=== PATIENT | female | born 1965 | race African-American/Black ===

== ENCOUNTER 2019-07-07 06:56 | Emergency (ER) | payer MEDICAID, OTHER ==
[~2019-07-07] VITALS: Ht 170.2 cm; Wt 86.0 kg
[2019-07-07] MEDS ORDERED: IBUPROFEN 800MG TABLET PO ONE (12:00)
[2019-07-07 12:22] VITALS: BP 157/80
== END 2019-07-07 12:25 | disposition home or self-care (01) ==
LOC: ER 06:56
DX: R07.89 Other chest pain (principal); J06.9 Acute upper respiratory infection, unspecified; Z98.890 Other specified postprocedural states
CPT/HCPCS: 71045; 93005; 99283; 99284

== ENCOUNTER 2022-10-31 09:55 | Emergency (ER) | payer BC, MEDICAID, OTHER ==
[~2022-10-31] VITALS: Ht 170.2 cm; Wt 86.9 kg
[2022-10-31] MEDS: LIDOCAINE 5% PATCH TOP SCH ×3 (11:30→13:16)
[2022-10-31] MEDS ORDERED: KETOROLAC 60MG/2ML VIAL IM ONE (11:30)
[2022-10-31] MEDS ORDERED: METHOCARBAMOL 500MG TABLET PO ONE (13:00)
[2022-10-31] MEDS ORDERED: METH-653 MT (13:15)
[2022-10-31] MEDS ORDERED: LIDO1ADH71 TP (13:15)
[2022-10-31 13:16] VITALS: BP 167/78
== END 2022-10-31 13:23 | disposition home or self-care (01) ==
LOC: ER 09:55
DX: M54.32 Sciatica, left side (principal); Z98.890 Other specified postprocedural states; M79.10 Myalgia, unspecified site
CPT/HCPCS: 96372; 99283; J1885; Z7610

== ENCOUNTER 2025-02-28 03:57 | Emergency (ER) | payer OTHER ==
[~2025-02-28] VITALS: Ht 167.6 cm; Wt 84.2 kg
[~2025-02-28 03:57] MED LIST: LIDO1ADH71 TP; METH-653 MT
[2025-02-28 04:07] VITALS: O2SAT 96
[2025-02-28] MEDS: HYDROCODONE/ACETAMINOPHEN 5/325MG TABLET PO ONE (04:33)
[2025-02-28] MEDS ORDERED: NAPR-1176 MT (05:24)
[2025-02-28] MEDS ORDERED: CYCL10TA21 MT (05:24)
[2025-02-28 05:40] VITALS: BP 151/82; PULSE 89; RESP 14; TEMP 36.7; O2SAT 96
== END 2025-02-28 05:47 | disposition home or self-care (01) ==
LOC: ER 03:57
DX: G89.29 Other chronic pain (principal); M25.561 Pain in right knee; M17.11 Unilateral primary osteoarthritis, right knee; Z79.899 Other long term (current) drug therapy
CPT/HCPCS: 29505; 73562; 99283